=== PATIENT | male | born 1970 | race Caucasian/White ===

== ENCOUNTER → 2020-05-04 | Outpatient (CLI) | payer BC ==
[2020-05-04 09:29] LABS: HEMOGLOBIN 14.2 gm/dl (14.0-17.5); RED BLOOD COUNT 4.44 M/UL (4.20-5.50); WHITE BLOOD COUNT 4.6 K/UL (4.5-11.0)
[2020-05-04 09:46] LABS: BUN/CREATININE RATIO 13 (0-10)
== END ==
LOC: LAB 08:42
PROVIDERS: Family Medicine
DX: Z13.220 Encounter for screening for lipoid disorders (principal); E55.9 Vitamin D deficiency, unspecified; L40.0 Psoriasis vulgaris; L40.1 Generalized pustular psoriasis
CPT/HCPCS: 36415; 80053; 80061; 83735; 84439; 84443; 84480; 84481; 84550; 85027

== ENCOUNTER → 2020-07-28 | Outpatient (CLI) | payer BC ==
[2020-07-28 08:49] LABS: GAMMA GLUTAMYL TRANSPEPTIDASE 25 U/L (7-64)
== END ==
LOC: LAB 07:58
PROVIDERS: Dermatology
DX: L40.0 Psoriasis vulgaris (principal); L40.1 Generalized pustular psoriasis
CPT/HCPCS: 36415; 82465; 82977; 84478

== ENCOUNTER → 2020-09-10 | Outpatient (CLI) | payer BC ==
[2020-09-10 12:14] LABS: HEMOGLOBIN 14.2 gm/dl (14.0-17.5); RED BLOOD COUNT 4.34 M/UL (4.20-5.50); WHITE BLOOD COUNT 4.3 K/UL (4.5-11.0)
[2020-09-10 12:51] LABS: BUN/CREATININE RATIO 12 (0-10)
[2020-09-11 10:03] LABS: HBSAG SCREEN Negative (Negative); HEP A AB, IGM Negative (Negative); HEP B CORE AB, IGM Negative (Negative); HEP C VIRUS AB <0.1 (0.0-0.9)
[2020-09-14 18:09] LABS: QUANTIFERON MITOGEN VALUE >10.00 IU/mL (.); QUANTIFERON NIL VALUE 0.01 IU/mL (.); QUANTIFERON TB1 AG VALUE 0.02 IU/mL (.); QUANTIFERON TB2 AG VALUE 0.01 IU/mL (.); QUANTIFERON-TB GOLD PLUS Negative (Negative)
== END ==
LOC: LAB 08:02
PROVIDERS: Dermatology
DX: L40.0 Psoriasis vulgaris (principal); L40.1 Generalized pustular psoriasis
CPT/HCPCS: 36415; 80053; 80074; 85027

== ENCOUNTER → 2021-01-10 | Day surgery (SDC) | payer BC ==
[~2021-01-10] MED LIST: CIMZIA400 MG/2 M SQ
== END | disposition home or self-care (01) ==
LOC: OR 05:51
DX: Z12.11 Encounter for screening for malignant neoplasm of colon (principal); M19.90 Unspecified osteoarthritis, unspecified site; Z86.16 Personal history of COVID-19; Z72.89 Other problems related to lifestyle; Z20.822 Contact with and (suspected) exposure to COVID-19
CPT/HCPCS: J2704; J7120

== ENCOUNTER → 2021-05-11 | Outpatient (CLI) | payer BC ==
[2021-05-11 09:33] LABS: HEMOGLOBIN 14.4 gm/dl (14.0-17.5); RED BLOOD COUNT 4.42 M/UL (4.20-5.50); WHITE BLOOD COUNT 4.8 K/UL (4.5-11.0)
[2021-05-11 09:58] LABS: GAMMA GLUTAMYL TRANSPEPTIDASE 27 U/L (7-64)
== END ==
LOC: LAB 08:47
PROVIDERS: Dermatology
DX: L40.0 Psoriasis vulgaris (principal); L40.50 Arthropathic psoriasis, unspecified
CPT/HCPCS: 36415; 82465; 82977; 84478; 85027

== ENCOUNTER → 2021-08-19 | Outpatient (CLI) | payer BC ==
[2021-08-19 09:22] LABS: HEMOGLOBIN 14.3 gm/dl (14.0-17.5); RED BLOOD COUNT 4.48 M/UL (4.20-5.50); WHITE BLOOD COUNT 4.6 K/UL (4.5-11.0)
[2021-08-19 10:08] LABS: BUN/CREATININE RATIO 13 (0-10); GAMMA GLUTAMYL TRANSPEPTIDASE 28 U/L (7-64)
== END ==
LOC: LAB 09:03
PROVIDERS: Dermatology
DX: L40.0 Psoriasis vulgaris (principal); L40.1 Generalized pustular psoriasis
CPT/HCPCS: 36415; 80053; 82465; 82977; 84478; 85027